=== PATIENT | male | born 1955 | race Two or more races ===

== ENCOUNTER 2020-02-17 11:20 | Outpatient (CLI) | payer OTHER | END 2020-02-17 11:22 | disposition home or self-care (01) | LOC: RAD 11:20 | DX: M41.84 Other forms of scoliosis, thoracic region (principal); Z20.828 Contact with and (suspected) exposure to other viral communicable diseases; H25.11 Age-related nuclear cataract, right eye ==

== ENCOUNTER 2020-08-05 11:49 | Emergency (ER) | payer OTHER ==
[~2020-08-05] VITALS: Ht 172.7 cm; Wt 86.2 kg
[2020-08-05] MEDS ORDERED: PLAVIX75 MG (12:05)
[2020-08-05] MEDS ORDERED: HUMALOG100 UNIT/2 (12:05)
[2020-08-05] MEDS ORDERED: LANTUS SOL100 UNIT/1 (12:05)
[2020-08-05] MEDS ORDERED: AMLODIPINE-OLM1 EAC3 (12:05)
[2020-08-05] MEDS ORDERED: COZAAR100 MG (12:06)
[2020-08-05] MEDS ORDERED: LASIX20 MG (12:06)
[2020-08-05] MEDS ORDERED: PRILOSEC OTC20 MG (12:06)
[2020-08-05] MEDS ORDERED: NON-ASPIRIN PA500 MG (12:07)
[2020-08-05] MEDS ORDERED: CARDURA1 MG (12:07)
[2020-08-05] MEDS ORDERED: CARVEDILOL ER40 MG (12:07)
[2020-08-05] MEDS ORDERED: TRAZODONE HCL50 MG (12:07)
[2020-08-05] MEDS ORDERED: HYDRALAZINE HCL50 MG (12:08)
== END 2020-08-05 18:51 | disposition home or self-care (01) ==
LOC: ER 11:49
DX: K59.09 Other constipation (principal); I16.0 Hypertensive urgency; I10 Essential (primary) hypertension

== ENCOUNTER 2020-11-26 09:39 | Outpatient (CLI) | payer OTHER ==
[~2020-11-26 09:39] MED LIST: AMLODIPINE-OLM1 EAC3; CARDURA1 MG; CARVEDILOL ER40 MG; COZAAR100 MG; HUMALOG100 UNIT/2; HYDRALAZINE HCL50 MG; LANTUS SOL100 UNIT/1; LASIX20 MG; NON-ASPIRIN PA500 MG; PLAVIX75 MG; PRILOSEC OTC20 MG; TRAZODONE HCL50 MG
== END 2020-11-26 09:48 | disposition home or self-care (01) ==
LOC: TOM 09:39
PROVIDERS: ATTEND Internal Medicine Gastroenterology
DX: K59.09 Other constipation (principal); N40.0 Benign prostatic hyperplasia without lower urinary tract symptoms

== ENCOUNTER 2023-01-27 11:20 | Emergency (ER) | payer OTHER ==
[~2023-01-27] VITALS: Ht 180.3 cm; Wt 90.7 kg
[2023-01-27 13:58] LABS: HEMATOCRIT 34.2 % (39.0-48.0); HEMOGLOBIN 11.1 g/dL (13-16.00); MEAN CORPUSCULAR HEMOGLOBIN 28.8 pg (27.00-32.0); MEAN CORPUSCULAR HGB CONC 32.3 g/dl (32.0-36.0); PLATELET COUNT 211 K/uL (150-450); RED BLOOD COUNT 3.85 M/uL (4.00-6.00)
[2023-01-27 14:17] LABS: ALBUMIN 3.4 gm/dL (3.4-5.0); BILIRUBIN TOTAL 0.28 mg/dL (0.3-1.2); CALCIUM 8.1 mg/dL (8.5-10.1); CREATININE SERUM 1.89 mg/dL (0.70-1.30); GFR 35.75; GLOBULINA 4.5 G/DL (2.4-3.5); POTASSIUM 4.48 mEq/L (3.5-5.1); TOTAL PROTEIN 7.9 gm/dL (6.4-8.2)
[2023-01-27 14:27] LABS: ABG PH 7.406 (7.35-7.45); ABG pCO2 38.7 mmHg (35-45); SaO2 97.3 %
[2023-01-27 14:28] LABS: BASE EXCESS -0.6 mmol/l; BICARBONATE 23.8 mmol/l (23-25)
[2023-01-27] MEDS ORDERED: TRAMADOL HCL50 MG PO (19:27)
== END 2023-01-27 19:40 | disposition home or self-care (01) ==
LOC: ER 11:20
PROVIDERS: General Practice
DX: S82.032A Displaced transverse fracture of left patella, initial encounter for closed fracture (principal); W19.XXXA Unspecified fall, initial encounter; Y93.89 Activity, other specified; Y92.89 Other specified places as the place of occurrence of the external cause; Y99.9 Unspecified external cause status; E11.649 Type 2 diabetes mellitus with hypoglycemia without coma; Z79.4 Long term (current) use of insulin; I10 Essential (primary) hypertension; I63.9 Cerebral infarction, unspecified
CPT/HCPCS: 29505; 36415; 71110; 73560; 82803; 96365; 96366; 99284; J3490

== ENCOUNTER 2023-01-29 09:40 | Outpatient (CLI) | payer OTHER ==
[~2023-01-29 09:40] MED LIST changes: +TRAMADOL HCL50 MG PO
[2023-01-29 11:23] LABS: HEMATOCRIT 29.7 % (39.0-48.0); HEMOGLOBIN 9.8 g/dL (13-16.00); MEAN CELL VOLUME 88.5 fL (80.0-100.00); MEAN CORPUSCULAR HEMOGLOBIN 29.1 pg (27.00-32.0); MEAN CORPUSCULAR HGB CONC 32.9 g/dl (32.0-36.0); PLATELET COUNT 170 K/uL (150-450); RED BLOOD COUNT 3.36 M/uL (4.00-6.00); RED CELL DISTRIBUTION WIDTH 15.5 % (11.5-14.5)
[2023-01-29 11:46] LABS: PARTIAL THROMBOPLASTIN TIME 28.9 SECONDS (22.0-34.0)
[2023-01-29 11:53] LABS: COL EPI 108 SECONDS (82-175)
[2023-01-29 12:01] LABS: BILIRUBIN TOTAL 0.43 mg/dL (0.3-1.2); CREATININE SERUM 1.66 mg/dL (0.70-1.30); GFR 41.53; GLOBULINA 3.9 G/DL (2.4-3.5); POTASSIUM 4.28 mEq/L (3.5-5.1); TOTAL PROTEIN 6.9 gm/dL (6.4-8.2)
[2023-01-29] MEDS ORDERED: GABAP PO (12:54)
[2023-01-29] MEDS ORDERED: LIPIT PO (12:54)
== END 2023-01-29 09:42 | disposition home or self-care (01) ==
LOC: LAB 09:40
PROVIDERS: ATTEND Orthopaedic Surgery
DX: D64.9 Anemia, unspecified (principal); E88.9 Metabolic disorder, unspecified; D68.8 Other specified coagulation defects; N39.0 Urinary tract infection, site not specified; A49.02 Methicillin resistant Staphylococcus aureus infection, unspecified site; E11.9 Type 2 diabetes mellitus without complications

== ENCOUNTER 2023-02-23 13:35 | Inpatient (IN) | payer OTHER ==
[~2023-02-23] VITALS: Ht 172.7 cm; Wt 82.6 kg
[~2023-02-23 13:35] MED LIST changes: +GABAP PO; +LIPIT PO
[2023-02-23] MEDS ORDERED: LIPITOR40 M1 (13:42)
[2023-02-23] MEDS ORDERED: APRESOLINE 10MG10 MG (13:42)
[2023-02-23] MEDS ORDERED: ADULT ASPIRIN81 MG (13:42)
[2023-02-23] MEDS ORDERED: NEURONTIN300 MG (13:43)
[2023-02-23] MEDS ORDERED: ENTRESTO 24 MG1 EACH ×2 (13:43)
--- NOTE | 2023-02-23 13:47 | NUR ---
PTE ALERTA Y ORIENTADO X3 EN [facility] EL CUAL REFIERE DOLOR ABDOMINAL, NO PODER ORINAD Y EVACUAR DESDE HACE 4 FORMAN. SE MIDEN S/V Y SE UBICA.
--- NOTE | 2023-02-23 16:51 | NUR ---
PACIENTE EVALUADO POR . SE ORIENTA SOBRE TX MEDICO, REFIERE ENTENDER. SE REALIZAN MUESTRAS DE LABORATORIO BAJO MEDIDAS ASEPTICAS. SE COORDINA CT. SE INSERTA SONDA URINARIA BAJO MEDIDAS ESTERILES. PTE MANEJADO POR . PENDIENTE RE-EVALUACION MEDICA.
[2023-02-23 17:22] LABS: PH,URINE 5.5 (5.0-8.0); URINE APPEARANCE Clear; URINE BILIRRUBIN Negative (NEGATIVE); URINE BLOOD Negative; URINE COLOR Yellow; URINE LEUKOCYTE Negative; URINE NITRATE Negative
[2023-02-23 17:23] LABS: URINE BACTERIA 11.3 uL (0.0-1933); URINE EPITHELIAL CELLS 9.8 uL (0.0-38.8); URINE WBC 2.9 uL (0.0-23.2)
[2023-02-23 17:25] LABS: MEAN CORPUSCULAR HGB CONC 32.5 g/dl (32.0-36.0); PLATELET COUNT 316 K/uL (150-450); RED BLOOD COUNT 2.71 M/uL (4.00-6.00); RED CELL DISTRIBUTION WIDTH 16.1 % (11.5-14.5)
[2023-02-23 17:30] LABS: HEMATOCRIT 23.3 % (39.0-48.0); HEMOGLOBIN 7.6 g/dL (13-16.00)
[2023-02-23 17:42] LABS: INR 1.09; PARTIAL THROMBOPLASTIN TIME 25.5 SECONDS (22.0-34.0); PROTHROMBIN TIME 11.4 SECONDS (9.0-11.5)
[2023-02-23 17:46] LABS: ALBUMIN 2.4 gm/dL (3.4-5.0); BILIRUBIN TOTAL 0.36 mg/dL (0.3-1.2); CALCIUM 8.9 mg/dL (8.5-10.1); CREATININE SERUM 1.75 mg/dL (0.70-1.30); GFR 39.07; GLOBULINA 5.9 G/DL (2.4-3.5); POTASSIUM 4.59 mEq/L (3.5-5.1); TOTAL PROTEIN 8.3 gm/dL (6.4-8.2)
[2023-02-23 17:54] LABS: URINE GLUCOSE 250 MG/DL (NEGATIVE); URINE MUCUS SCANT; URINE PROTEIN 100 (NEGATIVE)
[2023-02-23 17:57] LABS: URINE CRYSTALS MODERATE /HPF
--- NOTE | 2023-02-23 22:01 | NUR ---
RE-EVALUA PTE. SE ORIENTA A PTE SOBRE TX MEDICO, REFIERE ENTENDER. SE COLECTAN MUESTRAS PARA TUBOS PILOTOS PARA 2 UNIDADES DE PRBC FRACCIONADAS Y TUBO DE TIPO Y LAKESHIA. SE REALIZA REQUISION Y SE NOTIFICA A (PERSONAL DE [facility]). SE PROVEE CONSENTIMIENTO, PTE Y MD FIRMA DOCUMENTO Y SE ANEJA AL EXPEDIENTE MEDICO.
[2023-02-24 11:43] LABS: ob POSITIVE (NEGATIVE)
[2023-02-25 07:33] LABS: HEMATOCRIT 27.6 % (39.0-48.0); MEAN CELL VOLUME 85.1 fL (80.0-100.00); MEAN CORPUSCULAR HGB CONC 33.4 g/dl (32.0-36.0); PLATELET COUNT 253 K/uL (150-450); RED BLOOD COUNT 3.24 M/uL (4.00-6.00); RED CELL DISTRIBUTION WIDTH 15.5 % (11.5-14.5)
[2023-02-25 07:52] LABS: MEAN CORPUSCULAR HEMOGLOBIN 28.3 pg (27.00-32.0)
[2023-02-25 07:53] LABS: HEMOGLOBIN 9.2 g/dL (13-16.00)
[2023-02-26 06:26] LABS: HEMATOCRIT 30.5 % (39.0-48.0); HEMOGLOBIN 10.1 g/dL (13-16.00); MEAN CELL VOLUME 86.6 fL (80.0-100.00); MEAN CORPUSCULAR HEMOGLOBIN 28.5 pg (27.00-32.0); PLATELET COUNT 251 K/uL (150-450); RED BLOOD COUNT 3.53 M/uL (4.00-6.00); RED CELL DISTRIBUTION WIDTH 15.7 % (11.5-14.5)
[2023-02-26 07:09] LABS: CALCIUM 8.3 mg/dL (8.5-10.1); CREATININE SERUM 1.61 mg/dL (0.70-1.30); GFR 43.02; POTASSIUM 4.14 mEq/L (3.5-5.1)
[2023-02-28 06:42] LABS: HEMOGLOBIN 9.6 g/dL (13-16.00); MEAN CORPUSCULAR HEMOGLOBIN 28.4 pg (27.00-32.0); PLATELET COUNT 232 K/uL (150-450); RED BLOOD COUNT 3.37 M/uL (4.00-6.00); RED CELL DISTRIBUTION WIDTH 15.8 % (11.5-14.5)
[2023-02-28 07:36] LABS: ALBUMIN 2.2 gm/dL (3.4-5.0); BILIRUBIN TOTAL 0.43 mg/dL (0.3-1.2); CALCIUM 8.3 mg/dL (8.5-10.1); CREATININE SERUM 1.47 mg/dL (0.70-1.30); GFR 47.78; GLOBULINA 4.8 G/DL (2.4-3.5); POTASSIUM 4.12 mEq/L (3.5-5.1)
[2023-03-02 14:24] LABS: HEMATOCRIT 25.8 % (39.0-48.0); MEAN CELL VOLUME 86.4 fL (80.0-100.00); MEAN CORPUSCULAR HGB CONC 32.5 g/dl (32.0-36.0); PLATELET COUNT 214 K/uL (150-450); RED BLOOD COUNT 2.99 M/uL (4.00-6.00); RED CELL DISTRIBUTION WIDTH 15.3 % (11.5-14.5)
[2023-03-02 14:27] LABS: HEMOGLOBIN 8.4 g/dL (13-16.00)
[2023-03-04 02:47] LABS: HEMATOCRIT 35.3 % (39.0-48.0); HEMOGLOBIN 11.7 g/dL (13-16.00); MEAN CELL VOLUME 84.5 fL (80.0-100.00); MEAN CORPUSCULAR HEMOGLOBIN 27.9 pg (27.00-32.0); MEAN CORPUSCULAR HGB CONC 33.1 g/dl (32.0-36.0); PLATELET COUNT 229 K/uL (150-450); RED BLOOD COUNT 4.17 M/uL (4.00-6.00); RED CELL DISTRIBUTION WIDTH 15.2 % (11.5-14.5)
[2023-03-04] MEDS ORDERED: Procardia Xl 30MG TA PO ×2 (15:17)
[2023-03-04] MEDS ORDERED: CARVEDILOL25 MG PO ×2 (15:17)
[2023-03-04] MEDS ORDERED: LIPITOR40 M1 PO ×2 (15:17)
[2023-03-04] MEDS ORDERED: TAMS0.4C PO ×2 (15:17)
[2023-03-04] MEDS ORDERED: ENTRESTO 24 MG1 EACH PO ×2 (15:18)
[2023-03-04] MEDS ORDERED: PROTONIX40 MG PO ×2 (15:18)
[2023-03-04] MEDS ORDERED: NIFE60TA3 PO ×2 (15:19)
== END 2023-03-04 17:57 | disposition home or self-care (01) | DRG 812 ==
LOC: ER 13:35 → MEDI 22:14
PROVIDERS: General Practice; Internal Medicine; ADMIT Internal Medicine; ATTEND Internal Medicine
PROC: BW21ZZZ Computerized Tomography (CT Scan) of Abdomen and Pelvis (ICD-10-PCS; principal; 2023-02-23)
PROC: 02HV33Z Insertion of Infusion Device into Superior Vena Cava, Percutaneous Approach (ICD-10-PCS; 2023-02-24)
PROC: 30233N1 Transfusion of Nonautologous Red Blood Cells into Peripheral Vein, Percutaneous Approach (ICD-10-PCS; 2023-02-24)
PROC: B246ZZZ Ultrasonography of Right and Left Heart (ICD-10-PCS; 2023-02-25)
PROC: 0DB68ZX Excision of Stomach, Via Natural or Artificial Opening Endoscopic, Diagnostic (ICD-10-PCS; 2023-03-01)
DX: D64.89 Other specified anemias (principal); N17.8 Other acute kidney failure; I13.0 Hypertensive heart and chronic kidney disease with heart failure and stage 1 through stage 4 chronic kidney disease, or unspecified chronic kidney disease; I50.20 Unspecified systolic (congestive) heart failure; K92.1 Melena; I50.9 Heart failure, unspecified; N18.9 Chronic kidney disease, unspecified; E11.22 Type 2 diabetes mellitus with diabetic chronic kidney disease; E11.649 Type 2 diabetes mellitus with hypoglycemia without coma; E78.49 Other hyperlipidemia; K59.09 Other constipation; Z79.4 Long term (current) use of insulin; I25.10 Atherosclerotic heart disease of native coronary artery without angina pectoris; R68.89 Other general symptoms and signs

== ENCOUNTER 2023-03-08 07:21 | Outpatient (CLI) | payer OTHER ==
[~2023-03-08 07:21] MED LIST changes: +ADULT ASPIRIN81 MG; +APRESOLINE 10MG10 MG; +CARVEDILOL25 MG PO; +ENTRESTO 24 MG1 EACH; +ENTRESTO 24 MG1 EACH PO; +LIPITOR40 M1; +LIPITOR40 M1 PO; +NEURONTIN300 MG; +NIFE60TA3 PO; +PROTONIX40 MG PO; +Procardia Xl 30MG TA PO; +TAMS0.4C PO
== END 2023-03-08 07:25 | disposition home or self-care (01) ==
LOC: RAD 07:21
PROVIDERS: ATTEND Orthopaedic Surgery
DX: S82.042D Displaced comminuted fracture of left patella, subsequent encounter for closed fracture with routine healing (principal)

== ENCOUNTER 2023-07-05 11:43 | Emergency (ER) | payer OTHER ==
[~2023-07-05] VITALS: Ht 182.9 cm; Wt 77.1 kg
== END 2023-07-05 15:54 | disposition home or self-care (01) ==
LOC: ER 11:44
DX: M79.606 Pain in leg, unspecified (principal); I10 Essential (primary) hypertension; E11.9 Type 2 diabetes mellitus without complications; Z79.4 Long term (current) use of insulin

== ENCOUNTER 2023-07-21 07:09 | Outpatient (CLI) | payer OTHER | END 2023-07-21 07:16 | disposition home or self-care (01) | LOC: RAD 07:09 | PROVIDERS: ATTEND Orthopaedic Surgery | DX: S82.042D Displaced comminuted fracture of left patella, subsequent encounter for closed fracture with routine healing (principal); M25.571 Pain in right ankle and joints of right foot ==

== ENCOUNTER 2023-08-03 12:31 | Inpatient (IN) | payer OTHER ==
[~2023-08-03] VITALS: Ht 172.7 cm; Wt 82.6 kg
[2023-08-03] MEDS ORDERED: VANCOMYCIN HCL 500 MG VIAL IV STA (15:17)
[2023-08-03] MEDS ORDERED: 0.9 % SODIUM CHLORIDE 1,000 ML IV STA (15:18)
[2023-08-03] MEDS ORDERED: ACETAMINOPHEN WITH CODEINE 1 UDTAB TABLET PO STA (15:20)
[2023-08-03 15:48] LABS: HEMATOCRIT 34.1 % (39.0-48.0); HEMOGLOBIN 11.4 g/dL (13-16.00); MEAN CELL VOLUME 85.2 fL (80.0-100.00); MEAN CORPUSCULAR HEMOGLOBIN 28.5 pg (27.00-32.0); MEAN CORPUSCULAR HGB CONC 33.5 g/dl (32.0-36.0); PLATELET COUNT 197 K/uL (150-450); RED CELL DISTRIBUTION WIDTH 15.5 % (11.5-14.5)
[2023-08-03 16:16] LABS: CALCIUM 8.3 mg/dL (8.5-10.1); CREATININE SERUM 2.42 mg/dL (0.70-1.30); GFR 26.88; POTASSIUM 4.72 mEq/L (3.5-5.1)
[2023-08-03 18:55] LABS: PH,URINE 5.5 (5.0-8.0); URINE APPEARANCE Clear; URINE BILIRRUBIN Negative (NEGATIVE); URINE BLOOD Negative; URINE COLOR Yellow; URINE LEUKOCYTE Negative; URINE NITRATE Negative
[2023-08-03 18:58] LABS: URINE BACTERIA 17.6 uL (0.0-1933); URINE EPITHELIAL CELLS 14.9 uL (0.0-38.8); URINE RBC 16.2 uL (0.0-20.8); URINE WBC 6.7 uL (0.0-23.2)
[2023-08-03] MEDS ORDERED: 0.9 % SODIUM CHLORIDE 1,000 ML IV SCH (19:00)
[2023-08-03] MEDS ORDERED: CEFEPIME HCL 1,000 MG VIAL IV SCH (19:23)
[2023-08-03 19:27] LABS: URINE GLUCOSE 500 MG/DL (NEGATIVE); URINE PROTEIN 300 (NEGATIVE)
[2023-08-03] MEDS ORDERED: ACETAMINOPHEN 500 MG GEL..CAP PO PRN (19:30)
[2023-08-03] MEDS ORDERED: INSULIN LISPRO 1,000 UNIT/10 ML UNITS SUBCUTANEO PRN (19:30)
[2023-08-03] MEDS ORDERED: DEXTROSE 50 % IN WATER 0.5 G/ML DISP.SYRIN IV PRN (19:30)
[2023-08-03 20:15] LABS: INR 1.05; PARTIAL THROMBOPLASTIN TIME 30.4 SECONDS (22.0-34.0)
[2023-08-03 20:18] LABS: MAGNESIUM 2.3 mg/dL (1.8-2.4); PHOSPHOROUS 3.3 mg/dL (2.5-4.9)
[2023-08-03] MEDS ORDERED: LINEZOLID IN DEXTROSE 5% 300 ML IV SCH (21:00)
[2023-08-03] MEDS ORDERED: CARVEDILOL 25 MG TABLET PO SCH (21:00)
[2023-08-04] MEDS ORDERED: ENOXAPARIN SODIUM 30 MG/0.3 ML SYRINGE SUBCUTANEO SCH (09:00)
[2023-08-04] MEDS ORDERED: ASPIRIN 81 MG TAB.CHEW PO SCH (09:00)
[2023-08-04] MEDS ORDERED: FAMOTIDINE/PF 20 MG in 0.9 % SODIUM CHLORIDE 8 ML IV PUSH SCH (09:00)
[2023-08-04] MEDS ORDERED: LINEZOLID IN DEXTROSE 5% 300 ML IV SCH (09:00)
[2023-08-04] MEDS ORDERED: PATIENTS OWN MEDICATION (MEDICAMENTO EN PISO) PO SCH (09:00)
[2023-08-04] MEDS ORDERED: ATORVASTATIN CALCIUM 40 MG TABLET PO SCH (09:00)
[2023-08-04] MEDS ORDERED: TAMSULOSIN HCL 0.4 MG CAP PO SCH (09:00)
[2023-08-04] MEDS ORDERED: NIFEDIPINE 60 MG TAB.SA.OSM PO SCH (09:00)
[2023-08-05 06:35] LABS: HEMATOCRIT 30.3 % (39.0-48.0); HEMOGLOBIN 10.1 g/dL (13-16.00); MEAN CELL VOLUME 83.4 fL (80.0-100.00); MEAN CORPUSCULAR HEMOGLOBIN 27.8 pg (27.00-32.0); MEAN CORPUSCULAR HGB CONC 33.3 g/dl (32.0-36.0); PLATELET COUNT 189 K/uL (150-450); RED BLOOD COUNT 3.64 M/uL (4.00-6.00); RED CELL DISTRIBUTION WIDTH 15.4 % (11.5-14.5)
[2023-08-05 07:13] LABS: ALBUMIN 2.6 gm/dL (3.4-5.0); BILIRUBIN TOTAL 0.28 mg/dL (0.3-1.2); CALCIUM 7.6 mg/dL (8.5-10.1); CREATININE SERUM 1.85 mg/dL (0.70-1.30); GFR 36.65; GLOBULINA 4.7 G/DL (2.4-3.5); MAGNESIUM 2.1 mg/dL (1.8-2.4); PHOSPHOROUS 2.5 mg/dL (2.5-4.9); POTASSIUM 4.12 mEq/L (3.5-5.1); TOTAL PROTEIN 7.3 gm/dL (6.4-8.2)
[2023-08-05] MEDS ORDERED: IRON FUM,PS/FOLIC/BCOMP,C NO.9 1 CAP CAPSULE PO SCH (09:00)
[2023-08-05] MEDS ORDERED: CALCIUM CARBONATE/VITAMIN D3 1 TAB TABLET PO SCH (13:00)
[2023-08-05] MEDS ORDERED: AMINO ACIDS 1 EACH TABLET PO SCH (13:00)
[2023-08-05] MEDS ORDERED: CEFEPIME HCL 1,000 MG VIAL IV SCH (21:00)
[2023-08-06] MEDS ORDERED: NIFEDIPINE 90 MG TAB.SA.OSM PO SCH (09:32)
[2023-08-06] MEDS ORDERED: PIPERACILLIN/TAZOBACTAM SODIUM 3.375 GM VIAL IV SCH (18:00)
[2023-08-07 07:56] LABS: HEMATOCRIT 31.3 % (39.0-48.0); HEMOGLOBIN 10.6 g/dL (13-16.00); MEAN CELL VOLUME 82.4 fL (80.0-100.00); MEAN CORPUSCULAR HEMOGLOBIN 27.9 pg (27.00-32.0); MEAN CORPUSCULAR HGB CONC 33.9 g/dl (32.0-36.0); PLATELET COUNT 204 K/uL (150-450); RED BLOOD COUNT 3.79 M/uL (4.00-6.00); RED CELL DISTRIBUTION WIDTH 15.6 % (11.5-14.5)
[2023-08-07 08:08] LABS: ALBUMIN 2.6 gm/dL (3.4-5.0); BILIRUBIN TOTAL 0.28 mg/dL (0.3-1.2); CREATININE SERUM 1.8 mg/dL (0.70-1.30); GFR 37.82; PHOSPHOROUS 2.4 mg/dL (2.5-4.9); POTASSIUM 4.26 mEq/L (3.5-5.1); TOTAL PROTEIN 7.6 gm/dL (6.4-8.2)
[2023-08-07] MEDS ORDERED: LOSARTAN POTASSIUM 25 MG TABLET PO SCH (10:15)
[2023-08-07] MEDS ORDERED: POTASSIUM PHOS,M-BASIC-D-BASIC 15 MM in 0.9 % SODIUM CHLORIDE 250 ML IV ONE (12:00)
[2023-08-07] MEDS ORDERED: DOXAZOSIN MESYLATE 4 MG TABLET PO SCH (17:00)
[2023-08-08] MEDS ORDERED: INSULIN NPH HUM/REG INSULIN HM 1,000 UNIT/10 ML UNITS SUBCUTANEO STA (08:23)
[2023-08-08 08:45] LABS: CHOL HDL RATIO 2.7 (0-5.0)
[2023-08-08] MEDS ORDERED: hydrALAZINE HCL 25 MG TABLET PO SCH (17:00)
[2023-08-08] MEDS ORDERED: ISOSORBIDE DINITRATE 20 MG TABLET PO SCH (17:00)
[2023-08-08] MEDS ORDERED: DOXAZOSIN MESYLATE 2 MG TABLET PO SCH (17:00)
[2023-08-09 07:17] LABS: HEMATOCRIT 29.8 % (39.0-48.0); HEMOGLOBIN 10.1 g/dL (13-16.00); MEAN CELL VOLUME 83.7 fL (80.0-100.00); MEAN CORPUSCULAR HEMOGLOBIN 28.5 pg (27.00-32.0); MEAN CORPUSCULAR HGB CONC 34.1 g/dl (32.0-36.0); PLATELET COUNT 229 K/uL (150-450); RED BLOOD COUNT 3.56 M/uL (4.00-6.00); RED CELL DISTRIBUTION WIDTH 15.3 % (11.5-14.5)
[2023-08-09 07:53] LABS: ALBUMIN 2.7 gm/dL (3.4-5.0); BILIRUBIN TOTAL 0.32 mg/dL (0.3-1.2); CALCIUM 8.4 mg/dL (8.5-10.1); CREATININE SERUM 2.14 mg/dL (0.70-1.30); GFR 30.98; GLOBULINA 4.9 G/DL (2.4-3.5); MAGNESIUM 2.1 mg/dL (1.8-2.4); PHOSPHOROUS 3.6 mg/dL (2.5-4.9); POTASSIUM 4.43 mEq/L (3.5-5.1); TOTAL PROTEIN 7.6 gm/dL (6.4-8.2)
[2023-08-09] MEDS ORDERED: INSULIN NPH HUM/REG INSULIN HM 1,000 UNIT/10 ML UNITS SUBCUTANEO SCH ×2 (08:00)
[2023-08-09] MEDS ORDERED: FUROsemide 20 MG TABLET PO SCH (10:51)
[2023-08-09] MEDS ORDERED: SPIRONOLACTONE 25 MG TABLET PO SCH (10:52)
[2023-08-09] MEDS ORDERED: DOXAZOSIN MESYLA2 MG PO (11:11)
[2023-08-09] MEDS ORDERED: CARVEDILOL25 MG PO (11:11)
[2023-08-09] MEDS ORDERED: LIPITOR40 M1 PO (11:11)
[2023-08-09] MEDS ORDERED: INTEGRA PLUS C1 EACH PO (11:11)
[2023-08-09] MEDS ORDERED: SPIRONOLACTONE25 MG PO (11:12)
[2023-08-09] MEDS ORDERED: PROCARDIA XL90 MG PO (11:12)
[2023-08-09] MEDS ORDERED: ISOSORBIDE DINI20 MG PO (11:12)
[2023-08-09] MEDS ORDERED: ADULT ASPIRIN81 MG PO (11:12)
[2023-08-09] MEDS ORDERED: HYDRALAZINE HCL25 MG PO (11:12)
[2023-08-09] MEDS ORDERED: FUROSEMIDE20 MG PO (11:13)
[2023-08-09] MEDS ORDERED: PRE PROTEIN1 EACH PO (11:13)
[2023-08-09] MEDS ORDERED: INSULIN GL100 UNIT/3 SUBCUTANEO (11:15)
[2023-08-09] MEDS ORDERED: ADMELOG100 UNIT/1 SUBCUTANEO (11:16)
[2023-08-09] MEDS ORDERED: ENTRESTO 24 MG1 EACH PO (11:16)
[2023-08-09] MEDS ORDERED: AMOX-CLAV 875-1 EAC1 PO (11:20)
[2023-08-09] MEDS ORDERED: LEVOFLOXACIN750 MG PO (11:20)
[2023-08-09] MEDS ORDERED: INTESTINEX680 M1 PO (11:20)
== END 2023-08-09 17:00 | disposition home or self-care (01) | DRG 264 ==
LOC: ER 12:32 → SEC-K 19:59 → MEDJ 19:59
PROVIDERS: General Practice; ADMIT Internal Medicine; ATTEND Internal Medicine
PROC: 0JBQ0ZZ Excision of Right Foot Subcutaneous Tissue and Fascia, Open Approach (ICD-10-PCS; principal; 2023-08-04)
PROC: B44FZZZ Ultrasonography of Right Lower Extremity Arteries (ICD-10-PCS; 2023-08-04)
PROC: B54BZZZ Ultrasonography of Right Lower Extremity Veins (ICD-10-PCS; 2023-08-04)
PROC: 0JDQ0ZZ Extraction of Right Foot Subcutaneous Tissue and Fascia, Open Approach (ICD-10-PCS; 2023-08-05)
DX: I83.013 Varicose veins of right lower extremity with ulcer of ankle (principal); L97.319 Non-pressure chronic ulcer of right ankle with unspecified severity; N17.9 Acute kidney failure, unspecified; L02.415 Cutaneous abscess of right lower limb; I13.0 Hypertensive heart and chronic kidney disease with heart failure and stage 1 through stage 4 chronic kidney disease, or unspecified chronic kidney disease; I50.20 Unspecified systolic (congestive) heart failure; E11.621 Type 2 diabetes mellitus with foot ulcer; L97.519 Non-pressure chronic ulcer of other part of right foot with unspecified severity; L08.9 Local infection of the skin and subcutaneous tissue, unspecified; Z79.4 Long term (current) use of insulin; E11.65 Type 2 diabetes mellitus with hyperglycemia; Z74.01 Bed confinement status; I25.10 Atherosclerotic heart disease of native coronary artery without angina pectoris; N18.9 Chronic kidney disease, unspecified; D64.9 Anemia, unspecified; B96.4 Proteus (mirabilis) (morganii) as the cause of diseases classified elsewhere; B96.5 Pseudomonas (aeruginosa) (mallei) (pseudomallei) as the cause of diseases classified elsewhere; B95.61 Methicillin susceptible Staphylococcus aureus infection as the cause of diseases classified elsewhere; B95.2 Enterococcus as the cause of diseases classified elsewhere; B96.89 Other specified bacterial agents as the cause of diseases classified elsewhere; E78.5 Hyperlipidemia, unspecified; E11.22 Type 2 diabetes mellitus with diabetic chronic kidney disease; Z20.822 Contact with and (suspected) exposure to COVID-19; Z95.810 Presence of automatic (implantable) cardiac defibrillator